=== PATIENT | female | born 1950 | race Caucasian/White ===

== ENCOUNTER → 2016-11-17 | Outpatient (CLI) | payer BC ==
[~2016-11-17] MED LIST: ACCL20; BUPR-79 PO; CLOP1TAB15 PO; GABA-112 PO; GABA-113 PO; OXYC-57 PO; WARF5TAB7 PO
--- NOTE | 2016-11-17 15:15 | DIAGNOSTIC IMAGING REPORT ---
THREE-PHASE NUCLEAR BONE SCAN OF THE LUMBOSACRAL SPINE CLINICAL HISTORY: Right lower extremity radiculopathy. History of remote spinal surgery. COMPARISON STUDY: No priors. TECHNIQUE: Following the IV administration of 27.2 mCi of technetium 99m MDP, three-phase bone scan of the lumbosacral spine was performed. Anterior and posterior flow and blood flow phase images were acquired. Bone phase imaging of the lumbosacral spine was performed at three hours in multiple obliquities. SPECT imaging was performed. Note that interpretation is suboptimal without anatomic imaging correlate. FINDINGS: There is no hyperemia identified within the region of the lumbosacral spine on the flow or blood pool phase images. On the bone phase images there is lumbar levocurvature. There is focal abnormal tracer deposition identified within the right aspect of L3 and L4, as well as in the left aspect of L5. When correlated with the SPECT imaging, activity localized to the vertebral bodies at these levels, possibly related to marginal osteophyte formation. Milder tracer deposition is noted in the region of the facet joints at multiple lumbar levels. No abnormal tracer deposition is identified within the imaged lower thoracic spine or bony pelvis. There is expected excreted activity within the renal collecting system bilaterally. IMPRESSION: 1. Three-phase negative bone scan of lumbosacral spine. 2. There is abnormal tracer deposition identified within the right aspect of the L3 and L4 vertebral bodies and the left aspect of the L5 vertebral body. This is indeterminant and may correspond to lateral/marginal osteophyte formation. Comparison with anatomic imaging (x-ray or CT) is recommended for correlation. 3. Additional low-level degenerative activity and scoliosis as above. Electronically signed by: Patrice Werner M.D. 11/17/2016 3:14 PM Dictated Date/Time: 11/17/2016 3:06 PM
== END | disposition home or self-care (01) ==
LOC: C.NUCL 10:53
PROVIDERS: ATTEND Orthopaedic Surgery
DX: M54.16 Radiculopathy, lumbar region (principal); M54.5 Low back pain

== ENCOUNTER → 2017-01-12 | Outpatient (CLI) | payer BC ==
[~2017-01-12] MED LIST changes: +ATOR-24 PO; +CYM/30 PO; +METO25TA3 PO; +PANT40TA PO; +TRAV0.00 OP; +WARF7.5T PO; +[UNRECOGNIZED DRUG - SUPPLY] PO; +synthroid PO
--- NOTE | 2017-01-12 10:56 | DIAGNOSTIC IMAGING REPORT ---
SI JOINTS 3 OR MORE VIEWS CLINICAL HISTORY: RT HIP PAIN,LUMBAGO COMPARISON STUDY: None. FINDINGS: No fractures identified within the sacrum. Bilateral sacroiliac joints are within normal limits for age. No erosions within the sacroiliac joints. IMPRESSION: No significant abnormality within the bilateral sacroiliac joints. Electronically signed by: Romain Sanders M.D. 01/12/2017 10:55 AM Dictated Date/Time: 01/12/2017 10:54 AM
--- NOTE | 2017-01-12 10:57 | DIAGNOSTIC IMAGING REPORT ---
RIGHT HIP 2 VIEWS CLINICAL HISTORY: Right hip pain. FINDINGS: AP and frog-leg views of the right hip are obtained. No prior studies are available for comparison at the time of dictation. The skeletal structures are osteopenic. No fracture is seen. Only minimal arthritic change is present in the right hip. There is no significant loss of the joint space. Mild spurring is noted along the acetabular roof. Minimal sclerotic change is seen in the right sacroiliac joint. The overlying soft tissues are within normal limits. Phleboliths are noted in the pelvis. IMPRESSION: Osteopenia and minimal degenerative change as above. No acute bony abnormality is identified. Electronically signed by: Patrice Werner M.D. 01/12/2017 10:56 AM Dictated Date/Time: 01/12/2017 10:55 AM
== END | disposition home or self-care (01) ==
LOC: C.RADBC 10:26
PROVIDERS: ATTEND Physician Assistant
DX: M25.551 Pain in right hip (principal); M54.5 Low back pain; M85.88 Other specified disorders of bone density and structure, other site

== ENCOUNTER → 2017-02-23 | Outpatient (CLI) | payer BC ==
[2017-02-23 07:45] LABS: PROTHROMBIN TIME (PATIENT) 10.9 SECONDS (9.0-12.0)
== END | disposition home or self-care (01) ==
LOC: C.LAB 07:18
PROVIDERS: ATTEND Physician Assistant
DX: Z01.812 Encounter for preprocedural laboratory examination (principal); Z79.899 Other long term (current) drug therapy

== ENCOUNTER 2017-07-30 18:54 | Emergency (ER) | payer BC ==
[~2017-07-30] VITALS: Ht 162.6 cm; Wt 76.0 kg
[~2017-07-30 18:54] MED LIST changes: -ACCL20; +ACCL20 PO; -BUPR-79 PO; -GABA-112 PO; -OXYC-57 PO
[2017-07-30 18:57] VITALS: TEMP 36.8; Ht 162.6 cm; Wt 76.0 kg
[2017-07-30] MEDS ORDERED: SODIUM CHLORIDE 0.9% 1000ML 1,000 ML IV STA (19:02)
[2017-07-30] MEDS ORDERED: DILTIAZEM HCL 5 MG/ML 5 ML VIAL IV STA (19:05)
--- NOTE | 2017-07-30 19:15 | EMERGENCY ROOM VISIT NOTE ---
History Report prepared by Inés: Ramya Meléndez Under the Supervision of: Dr. Giancarlo Abraham D.O. First contact with patient: 18:59 Chief Complaint: CARDIAC ASSESSMENT Stated Complaint: IRREGULAR HEARTBEAT History of Present Illness The patient is a 67 year old female who presents to the Emergency Room with complaints of an episode of an irregular heart beat beginning about 45 minutes ago. The patient has a history of irregular heart beats but states she is usually able to "get out of". The patient notes having an episode She notes shortness of breath, high blood pressure and some swelling in her legs. The patient is on Coumadin for fibromuscular dysplasia. She has thyroid problems and notes taking her thyroid medication as prescribed. The patient notes that she stopped working a year ago and states she has gained weight since. She denies any chest pain, nausea or vomiting. The patient recently had a heart catheterization which was unremarkable. She denies any diagnosed history of atrial fibrillation. Source of History: patient Onset: 45 minutes ago Position: other (global) Quality: other (irregular heart beat) Timing: other (episode) Associated Symptoms: + SOB, No nausea, No vomiting Review of Systems See HPI for pertinent positives & negatives. A total of 10 systems reviewed and were otherwise negative. Past Medical & Surgical Medical Problems: (1) Fibromuscular dysplasia Family History Patient reports no known family medical history. Social History Smoking Status: Never Smoker Marital Status: Housing Status: lives with significant other Occupation Status: retired Current/Historical Medications Scheduled Atorvastatin (Lipitor), 1 TAB PO QPM B-Complex Vitamins (Vitamin B Complex), 1 TAB PO DAILY Clopidogrel (Plavix), 75 MG PO DAILY Coenzyme Q10 (Ubidecarenone) (Co Q 10), 100 MG PO DAILY Duloxetine HCl (Cymbalta), 1 CAP PO DAILY Gabapentin (Neurontin), 300 MG PO TID Levothyroxine Sodium (Levothyroxine Sodium), 137 MCG PO DAILY Metoprolol Succ (Toprol Xl) (Toprol-Xl), 12.5 MG PO DAILY Pantoprazole (Protonix), 40 MG PO DAILY Ropinirole Hydrochloride (Requip), 0.25 MG PO BID Travoprost (Travatan Z), 1 DROPS OP HS Warfarin Sod (Jantoven), 5 MG PO 3 x weekly Warfarin Sodium (Coumadin), 1 TAB PO 4 x weekly Zafirlukast (Zafirlukast), 20 MG PO BID Allergies Coded Allergies: No Known Allergies (Unverified , 07/30/17) Physical Exam Vital Signs Date Time Temp Pulse Resp B/P (MAP) Pulse Ox O2 Delivery O2 Flow Rate FiO2 07/30/17 21:05 54 07/30/17 20:30 50 18 154/63 98 Room Air 07/30/17 20:00 53 18 142/56 98 Room Air 07/30/17 19:32 97 Room Air 07/30/17 19:32 59 18 163/64 97 Room Air 07/30/17 19:23 97 Room Air 07/30/17 19:20 97 18 153/99 99 Room Air 07/30/17 19:18 122 07/30/17 19:16 99 Room Air 07/30/17 19:16 99 Room Air 07/30/17 18:57 36.8 148 20 138/73 94 Room Air Physical Exam GENERAL: Patient is awake, alert, and in no acute distress. Patient is resting comfortably and is somewhat anxious. EYES: The conjunctivae are clear. The pupils are round and reactive. EARS, NOSE, MOUTH AND THROAT: The nose is without any evidence of any deformity. Mucous membranes are moist tongue is midline NECK: The neck is nontender and supple. RESPIRATORY: Normal respiratory effort is noted there is no evidence of wheezing rhonchi or rales CARDIOVASCULAR: Tachycardiac and irregular. No definite murmur to auscultation. GASTROINTESTINAL: The abdomen is soft. Bowel sounds are present in all quadrants. Abdomen is nontender MUSCULOSKELETAL/EXTREMITIES: There is no evidence of gross deformity full range of motion is noted in the hips and shoulders SKIN: There is no obvious evidence of any rash. There are no petechiae, pallor or cyanosis noted. NEUROLOGIC: Patient is awake alert and oriented x3 Medical Decision & Procedures ER Provider Diagnostic Interpretation: Radiology results as stated below per my review and radiologist interpretation: CHEST ONE VIEW PORTABLE FINDINGS: Lung volumes are normal. There is no pneumothorax or pleural effusion. There is no evidence of pulmonary edema. Mild cardiomegaly is noted. A metallic density projects over the lower chest/upper abdomen. IMPRESSION: 1. No acute cardiopulmonary findings. 2. Mild cardiomegaly. 3. Indeterminate radiodensity which projects over the lower chest/upper abdomen. Electronically signed by: Costa Minaya M.D. Laboratory Results 07/30/17 19:10 Red Blood Count 4.39, Mean Corpuscular Volume 92.7, Mean Corpuscular Hemoglobin 30.5, Mean Corpuscular Hemoglobin Concent 32.9, Mean Platelet Volume 9.3 07/30/17 19:10 Test 07/30/17 19:10 07/30/17 19:33 White Blood Count 9.30 K/uL (4.8-10.8) Red Blood Count 4.39 M/uL (4.2-5.4) Hemoglobin 13.4 g/dL (12.0-16.0) Hematocrit 40.7 % (37-47) Mean Corpuscular Volume 92.7 fL (80-100) Mean Corpuscular Hemoglobin 30.5 pg (25-34) Mean Corpuscular Hemoglobin Concent 32.9 g/dl (32-36) Platelet Count 311 K/uL (130-400) Mean Platelet Volume 9.3 fL (7.4-10.4) RDW Standard Deviation 42.4 fL (36.4-46.3) RDW Coefficient of Variation 12.5 % (11.5-14.5) Neutrophils % (Manual) 27.9 % Lymphocytes % (Manual) 29.8 % Variant Lymphocytes % (manual) 29.7 % Monocytes % (Manual) 8.1 % Eosinophils % (Manual) 0.9 % Basophils % (Manual) 3.6 % Neutrophils # (Manual) 2.59 K/uL (1.4-6.5) Total Absolute Neutrophils 2.59 K/uL (1.4-6.5) Lymphocytes # (Manual) 2.77 K/uL (1.2-3.4) Absolute Variant Lymphocytes 2.76 K/uL Total Absolute Lymphocytes 5.53 K/uL (1.2-3.4) Monocytes # (Manual) 0.75 K/uL (0.11-0.59) Eosinophils # (Manual) 0.08 K/uL (0-0.5) Basophils # (Manual) 0.33 K/uL (0-0.2) Prothrombin Time 25.1 SECONDS (9.0-12.0) Prothromb Time International Ratio 2.4 (0.9-1.1) Activated Partial Thromboplast Time 34.9 SECONDS (21.0-31.0) Partial Thromboplastin Ratio 1.3 Anion Gap 4.0 mmol/L (3-11) Est Creatinine Clear Calc Drug Dose 70.0 ml/min Estimated GFR () 89.7 Estimated GFR (Non- 77.4 BUN/Creatinine Ratio 16.4 (10-20) Calcium Level 9.1 mg/dl (8.5-10.1) Magnesium Level 1.9 mg/dl (1.8-2.4) Total Bilirubin 0.2 mg/dl (0.2-1) Aspartate Amino Transf (AST/SGOT) 39 U/L (15-37) Alanine Aminotransferase (ALT/SGPT) 51 U/L (12-78) Alkaline Phosphatase 103 U/L (45-117) Total Creatine Kinase 164 U/L (26-192) Creatine Kinase MB 1.3 ng/ml (0.5-3.6) Creatine Kinase MB Ratio 0.8 (0-3.0) Troponin I < 0.015 ng/ml (0-0.045) Pro-B-Type Natriuretic Peptide 211 pg/ml (0-900) Total Protein 8.2 gm/dl (6.4-8.2) Albumin 4.1 gm/dl (3.4-5.0) Globulin 4.1 gm/dl (2.5-4.0) Albumin/Globulin Ratio 1.0 (0.9-2) Thyroid Stimulating Hormone (TSH) 13.100 uIu/ml (0.300-4.500) Free Thyroxine 1.00 ng/dl (0.80-1.60) Urine Color YELLOW Urine Appearance CLEAR (CLEAR) Urine pH 8.5 (4.5-7.5) Urine Specific [place] 1.009 (1.000-1.030) Urine Protein NEG (NEG) Urine Glucose (UA) NEG (NEG) Urine Ketones NEG (NEG) Urine Occult Blood NEG (NEG) Urine Nitrite NEG (NEG) Urine Bilirubin NEG (NEG) Urine Urobilinogen NEG (NEG) Urine Leukocyte Esterase NEG (NEG) Laboratory results per my review. Medications Administered Medications (Trade) Dose Ordered Sig/Isaías Route Start Time Stop Time Status Last Admin Dose Admin Sodium Chloride 1,000 ml @ 999 mls/hr Q1H1M STAT IV 07/30/17 19:02 07/30/17 20:02 DC 07/30/17 19:16 999 MLS/HR Diltiazem HCl (Cardizem Inj) 20 mg NOW STAT IV 07/30/17 19:05 07/30/17 19:06 DC 07/30/17 19:17 20 MG ECG Indication: other (irregular heart beat) Rate (beats per minute): 139 Rhythm: atrial fibrillation (with RVR) Findings: ST depression (Lateral and inferior), other (No PVC) Comparison ECG Date: no prior available Change: REPEAT EKG: Sinus bradycardia, 57 bpm, no ectopy, no acute ST segment, resolution of previous atrial fibrillation. ED Course 1899: The patient was evaluated in room C4. A complete history and physical examination were performed. 1901: Ordered NSS 1,000 ml @ 999 mls/hr IV. 1904: Ordered Cardizem Inj 20 mg IV. 2099: I discussed the patient's case with Dr. Peck-Cardiology. He recommended increasing the patient's beta rohith and having the patient follow up as an outpatient for an echocardiogram. 2104: I updated the patient on the treatment plan and she is agreeable. 2112: Upon reevaluation, the patient is resting comfortably. I discussed the results and treatment plan with her. She verbalized agreement of the treatment plan. The patient was discharged home. Medical Decision Differential diagnosis: Etiologies such as premature contractions, electrolyte abnormality, cardiac dysrhythmia, thyroid dysfunction, pulmonary embolism, infection, gastrointestinal, as well as others were entertained. Nursing notes reviewed. Additional history is obtained from the patient's significant other. The patient is a 67-year-old female who presented to the emergency department for palpitations. The patient is had problems with intermittent palpitations for almost a year. There has never been and documentation of the exact dysrhythmia but the patient started having palpitations this evening and presented to the emergency department with an irregular narrow complex tachycardia which appeared to be consistent with atrial fibrillation. Currently the patient takes blood thinners as well as beta blockers for previous medical history. The patient was treated with IV fluids and IV Cardizem in the emergency department. On subsequent reevaluation she was in sinus rhythm. I discussed patient's laboratory and radiographic studies with her. I discussed his case with the on-call [facility] educational administrator. The patient was encouraged to rest and avoid any strenuous activity. She was also encouraged to drink plenty clear liquids. She was also encouraged to call the educational administrator on Tuesday morning to schedule a follow-up appointment but return to the emergency department immediately if symptoms change worsen or the need arises. Medication Reconcilliation Current Medication List: was personally reviewed by me Blood Pressure Screening Patient's blood pressure: Elevated blood pressure Blood pressure disposition: Referred to PCP Consults Time Called: 2032 Consulting Physician: Dr. Banegas Returned Call: 2099 I discussed the patient's case with Dr. Banegas. He recommended increasing the patient's beta rohith and having the patient follow up as an outpatient for an echocardiogram. Impression Primary Impression: Atrial fibrillation Additional Impression: Palpitations Scribe Attestation The scribe's documentation has been prepared under my direction and personally reviewed by me in its entirety. I confirm that the note above accurately reflects all work, treatment, procedures, and medical decision making performed by me. Departure Information Dispostion Home / Self-Care Referrals Giancarlo Buck MD (PCP) Forms IMPORTANT VISIT INFORMATION Patient Instructions Atrial Fibrillation, My [facility] Additional Instructions Drink plenty clear liquids. Rest and avoid any strenuous activity. Increase your metoprolol XL to 25 milligrams daily. Return to the emergency department immediately if symptoms change worsen or the need arises. Call the educational administrator to schedule a follow-up appointment and further testing such as an echocardiogram to further evaluate the cause of your atrial fibrillation. Problem Qualifiers
[2017-07-30 19:16] VITALS: O2SAT 99
[2017-07-30 19:24] LABS: HEMATOCRIT 40.7 % (37-47); MEAN CELL VOLUME 92.7 fL (80-100); MEAN CORPUSCULAR HEMOGLOBIN 30.5 pg (25-34); MEAN CORPUSCULAR HGB CONC 32.9 g/dl (32-36); MEAN PLATELET VOLUME 9.3 fL (7.4-10.4); PLATELET COUNT 311 K/uL (130-400); RED BLOOD COUNT 4.39 M/uL (4.2-5.4)
[2017-07-30 19:34] LABS: INR 2.4 (0.9-1.1); PARTIAL THROMBOPLASTIN RATIO 1.3; PROTHROMBIN TIME (PATIENT) 25.1 SECONDS (9.0-12.0)
--- NOTE | 2017-07-30 19:42 | DIAGNOSTIC IMAGING REPORT ---
CHEST ONE VIEW PORTABLE CLINICAL HISTORY: Respiratory distress. Dyspnea. COMPARISON STUDY: No previous studies for comparison. FINDINGS: Lung volumes are normal. There is no pneumothorax or pleural effusion. There is no evidence of pulmonary edema. Mild cardiomegaly is noted. A metallic density projects over the lower chest/upper abdomen. IMPRESSION: 1. No acute cardiopulmonary findings. 2. Mild cardiomegaly. 3. Indeterminate radiodensity which projects over the lower chest/upper abdomen. Electronically signed by: Costa Minaya M.D. 07/30/2017 7:40 PM Dictated Date/Time: 07/30/2017 7:39 PM
[2017-07-30 19:47] LABS: BASO ABS # 0.33 K/uL (0-0.2); BASOPHIL % 3.6 %; EOSINOPHIL % 0.9 %; LYMPH ABS # 2.77 K/uL (1.2-3.4); LYMPHOCYTE % 29.8 %; NEUTROPHILS % 27.9 %; VARIANT LYM ABS # 2.76 K/uL; VARIANT LYMPHOCYTE % 29.7 %
[2017-07-30 19:50] LABS: ALT/SGPT 51 U/L (12-78); AST/SGOT 39 U/L (15-37); BLOOD UREA NITROGEN 13 mg/dl (7-18); BUN/CREATININE RATIO 16.4 (10-20); CALCIUM 9.1 mg/dl (8.5-10.1); CARBON DIOXIDE 29 mmol/L (21-32); CHLORIDE 104 mmol/L (98-107); GLUCOSE 85 mg/dl (70-99); MAGNESIUM 1.9 mg/dl (1.8-2.4); POTASSIUM 3.5 mmol/L (3.5-5.1); SODIUM 137 mmol/L (136-145)
[2017-07-30] MEDS ORDERED: LEVO137T3 PO (19:50)
[2017-07-30] MEDS ORDERED: ROPI0.25 PO (19:50)
[2017-07-30] MEDS ORDERED: B-COTAB18 PO (19:50)
[2017-07-30] MEDS ORDERED: COEN1CAP17 PO (19:50)
[2017-07-30 19:52] LABS: URINE APPEARANCE CLEAR (CLEAR); URINE BILIRUBIN NEG (NEG); URINE COLOR YELLOW; URINE NITRITE NEG (NEG); URINE PH 8.5 (4.5-7.5); URINE SPECIFIC GRAVITY 1.009 (1.000-1.030); UROBILINOGEN NEG (NEG)
[2017-07-30 19:57] LABS: ALKALINE PHOSPHATASE 103 U/L (45-117); CKMB/CK RATIO 0.8 (0-3.0)
[2017-07-30 20:07] LABS: MANUAL MICROSCOPIC REQUIRED? NO; REVIEW REQ? NO
[2017-07-30 21:19] VITALS: BP 151/59; PULSE 53; O2SAT 97
[2017-08-01 11:21] LABS: COMPLETE YES
== END 2017-07-30 21:19 | disposition home or self-care (01) ==
LOC: C.EDB 18:55 → C.EDC 21:19
DX: I48.91 Unspecified atrial fibrillation (principal); E07.9 Disorder of thyroid, unspecified; Z79.01 Long term (current) use of anticoagulants; Z79.899 Other long term (current) drug therapy

== ENCOUNTER 2017-08-21 14:59 | Emergency (ER) | payer BC ==
[~2017-08-21] VITALS: Ht 162.6 cm; Wt 76.9 kg
[~2017-08-21 14:59] MED LIST changes: -ACCL20 PO; +B-COTAB18 PO; +COEN1CAP17 PO; +LEVO137T3 PO; +ROPI0.25 PO; +ZAFI1TAB11 PO; -[UNRECOGNIZED DRUG - SUPPLY] PO; -synthroid PO
[2017-08-21 15:02] VITALS: TEMP 36.3; Ht 162.6 cm; Wt 76.9 kg
--- NOTE | 2017-08-21 15:24 | EMERGENCY ROOM VISIT NOTE ---
History First contact with patient: 15:07 Chief Complaint: ARM PAIN Stated Complaint: PAIN AND BURNING IN RIGHT ARM History of Present Illness The patient is a 67 year old female who presents to the Emergency Room with complaints of right elbow bruising that she noticed when she woke up yesterday morning. She denies any known injury. The patient is on Coumadin for a history of A. fib. She also notes some redness to the area. She denies any fever or chills. She has full range of motion. It is tender to touch. She denies any known insect bites. She denies any numbness or tingling into the hand. Review of Systems 6 system review negative. Please see pertinent positives in the history of present illness section. Past Medical/Surgical History Medical Problems: (1) Fibromuscular dysplasia A. fib Family History Patient reports no known family medical history. Social History Smoking Status: Never Smoker Marital Status: Housing Status: lives with significant other Occupation Status: retired Current/Historical Medications Scheduled Atorvastatin (Lipitor), 40 MG PO QPM B-Complex Vitamins (Vitamin B Complex), 1 TAB PO DAILY Clopidogrel (Plavix), 75 MG PO DAILY Coenzyme Q10 (Ubidecarenone) (Co Q 10), 100 MG PO DAILY Duloxetine HCl (Cymbalta), 30 MG PO DAILY Gabapentin (Neurontin), 300 MG PO TID Levothyroxine Sodium (Levothyroxine Sodium), 137 MCG PO DAILY Metoprolol Succ (Toprol Xl) (Toprol-Xl), 25 MG PO QPM Pantoprazole (Protonix), 40 MG PO DAILY Ropinirole Hydrochloride (Requip), 0.25 MG PO BID Travoprost (Travatan Z), 1 DROPS OP HS Warfarin Sod (Jantoven), 5 MG PO 3 x weekly Warfarin Sodium (Coumadin), 1 TAB PO 4 x weekly Zafirlukast (Zafirlukast), 20 MG PO BID Physical Exam Vital Signs Date Time Temp Pulse Resp B/P (MAP) Pulse Ox O2 Delivery O2 Flow Rate FiO2 08/21/17 15:02 36.3 59 16 156/66 100 Room Air Physical Exam VITALS: Vitals are noted on the nurse's note and reviewed by myself. Vital signs stable. GENERAL: 67-year-old female, in no acute distress, nondiaphoretic, well- developed well-nourished. HEAD: Normocephalic atraumatic. MUSCULOSKELETAL: Ecchymosis noted to the right elbow, particularly over the proximal ulna. Tenderness to palpation noted. Mild erythema also noted. No area of induration. Full range of motion with flexion and extension. Pronation and supination of the wrist is intact. Radial pulse +2. She is able to make an okay sign. Capillary refill in the fingers is less than 2 seconds. NEURO: Patient was alert and oriented to person place and time. Normal sensation to touch. No focal neurological deficits. Medical Decision & Procedures ER Provider Diagnostic Interpretation: Right elbow x-ray IMPRESSION: Negative study. The above report was generated using voice recognition software. It may contain grammatical, syntax or spelling errors. Electronically signed by: Solomon Harry M.D. 08/21/2017 3:58 PM Dictated Date/Time: 08/21/2017 3:57 PM The status of this report is Signed. Draft = Not yet reviewed or approved by Radiologist. Signed = Reviewed and approved by Radiologist. <AttendingPhy></AttendingPhy> <FamilyPhy>Giancarlo Buck MD</FamilyPhy> < PrimaryPhy>Giancarlo Buck MD</PrimaryPhy> <UnitNumber>[id number]</UnitNumber > <VisitNumber>[id number]</VisitNumber> <PatientName>HUMPHREY SALINAS</ PatientName> <DateOfBirth>1950</DateOfBirth> <Location>[facility]</Location> < ServiceDate>08/21/17</ServiceDate> <MNE>ESINDI</MNE> <OrderingPhy>Mayra Cleveland PA-C</OrderingPhy> <OrderingPhyMNE>f rep ord dr hanna</OrderingPhyMNE> < DictatingPhyMNE>f rep dict dr hanna</DictatingPhyMNE> <CCListMNE>f rep ct claye</ CCListMNE> <AdmittingPhyMNE>f pt admit dr hanna</AdmittingPhyMNE> <AttendingPhyMNE >f pt attend dr hanna</AttendingPhyMNE> <ConsultingPhyMNE>f pt consult dr hanna</ConsultingPhyMNE> <FamilyPhyMNE>f pt fam dr hanna</FamilyPhyMNE> <OtherPhyMNE>f pt other dr hanna</OtherPhyMNE> < PrimaryPhyMNE>f pt prim care dr hanna</PrimaryPhyMNE> <ReferringPhyMNE>f pt referring Laboratory Results 08/21/17 15:28 Red Blood Count 4.28, Mean Corpuscular Volume 93.9, Mean Corpuscular Hemoglobin 30.8, Mean Corpuscular Hemoglobin Concent 32.8, Mean Platelet Volume 9.6, Neutrophils (%) (Auto) 43.4, Lymphocytes (%) (Auto) 46.3, Monocytes (%) (Auto) 7.3, Eosinophils (%) (Auto) 2.1, Basophils (%) (Auto) 0.6, Neutrophils # (Auto) 2.83, Lymphocytes # (Auto) 3.03, Monocytes # (Auto) 0.48, Eosinophils # (Auto) 0.14, Basophils # (Auto) 0.04 08/21/17 15:28 Test 08/21/17 15:28 White Blood Count 6.54 K/uL (4.8-10.8) Red Blood Count 4.28 M/uL (4.2-5.4) Hemoglobin 13.2 g/dL (12.0-16.0) Hematocrit 40.2 % (37-47) Mean Corpuscular Volume 93.9 fL (80-100) Mean Corpuscular Hemoglobin 30.8 pg (25-34) Mean Corpuscular Hemoglobin Concent 32.8 g/dl (32-36) Platelet Count 306 K/uL (130-400) Mean Platelet Volume 9.6 fL (7.4-10.4) Neutrophils (%) (Auto) 43.4 % Lymphocytes (%) (Auto) 46.3 % Monocytes (%) (Auto) 7.3 % Eosinophils (%) (Auto) 2.1 % Basophils (%) (Auto) 0.6 % Neutrophils # (Auto) 2.83 K/uL (1.4-6.5) Lymphocytes # (Auto) 3.03 K/uL (1.2-3.4) Monocytes # (Auto) 0.48 K/uL (0.11-0.59) Eosinophils # (Auto) 0.14 K/uL (0-0.5) Basophils # (Auto) 0.04 K/uL (0-0.2) RDW Standard Deviation 42.0 fL (36.4-46.3) RDW Coefficient of Variation 12.4 % (11.5-14.5) Immature Granulocyte % (Auto) 0.3 % Immature Granulocyte # (Auto) 0.02 K/uL (0.00-0.02) Erythrocyte Sedimentation Rate 22 mm/hr (0-21) Prothrombin Time 28.8 SECONDS (9.0-12.0) Prothromb Time International Ratio 2.8 (0.9-1.1) Anion Gap 3.0 mmol/L (3-11) Est Creatinine Clear Calc Drug Dose 59.3 ml/min Estimated GFR () 72.8 Estimated GFR (Non- 62.9 BUN/Creatinine Ratio 9.6 (10-20) Calcium Level 9.1 mg/dl (8.5-10.1) C-Reactive Protein < 0.29 mg/dl (0-0.29) ED Course Patient was seen and examined Vital signs including blood pressure were reviewed medications list was verified with patient Labs were obtained, and a saline lock was established Imaging was performed and reviewed The findings were discussed with the patient. She voiced understanding. A compression Jesús wrap was applied. I reviewed discharge instructions the patient. They voiced understanding and had no further questions. Medical Decision Differential diagnosis: Elbow contusion, fracture, bursitis, insect bite, supratherapeutic INR, infectious etiology This patient is a 67-year-old female that presents to the emergency department with complaints of ecchymosis and redness to the right elbow with no known injury. On exam, she did have ecchymosis over the proximal forearm and elbow. There is no tenderness over the bursa. There was a small area of erythema. Lab work was performed. There is no leukocytosis. CRP is not elevated. The patient is not febrile. I do not suspect an infectious etiology. She likely had a minor injury, and due to the fact that she is on Coumadin, resulted in bruising. Her INR is 2.8, which is appropriate. The patient was put in a compression Jesús bandage. She will apply ice intermittently. I advised her to follow-up with her primary care physician to have this rechecked in the next few days. She was comfortable with this plan. I advised her to return to the emergency department immediately with any new or worsening symptoms; especially , increased redness, swelling or fever. This chart was completed in part utilizing [employer] Speech Voice Recognition software. Attempts were made to minimize the grammatical errors, random word insertions, pronoun errors and incomplete sentences. Any formal questions or concerns about the content, text or information contained within the body of this dictation should be directly addressed to the provider for clarification. Medication Reconcilliation Current Medication List: was personally reviewed by me Blood Pressure Screening Patient's blood pressure: Elevated blood pressure Blood pressure disposition: Did not require urgent referral Impression Primary Impression: Elbow contusion Departure Information Dispostion Home / Self-Care Condition GOOD Referrals Giancarlo Buck MD (PCP) Patient Instructions My [facility] Additional Instructions You were evaluated in the emergency department for bruising to the right elbow. This is likely due to being on Coumadin. Please keep the Jesús wrap in place for 2 days. Apply ice for 20 minute intervals over the next 2 days. Please follow-up with your primary care physician in 3-5 days for recheck. Do not hesitate to return to the emergency department with any new, worsening or concerning symptoms; especially, increased redness, swelling, pain or fever
[2017-08-21 15:37] LABS: BASO % 0.6 %; BASO ABS # 0.04 K/uL (0-0.2); EOS % 2.1 %; EOS ABS # 0.14 K/uL (0-0.5); HEMATOCRIT 40.2 % (37-47); HEMOGLOBIN 13.2 g/dL (12.0-16.0); IG# 0.02 K/uL (0.00-0.02); LYMPH % 46.3 %; LYMPH ABS # 3.03 K/uL (1.2-3.4); MEAN CELL VOLUME 93.9 fL (80-100); MEAN CORPUSCULAR HEMOGLOBIN 30.8 pg (25-34); MEAN CORPUSCULAR HGB CONC 32.8 g/dl (32-36); MEAN PLATELET VOLUME 9.6 fL (7.4-10.4); MONO % 7.3 %; MONO ABS # 0.48 K/uL (0.11-0.59); NEUT % 43.4 %; NEUT ABS # 2.83 K/uL (1.4-6.5); PLATELET COUNT 306 K/uL (130-400); RED CELL DISTRIBUTION WIDTH CV 12.4 % (11.5-14.5); WHITE BLOOD COUNT 6.54 K/uL (4.8-10.8)
[2017-08-21 15:44] LABS: INR 2.8 (0.9-1.1)
--- NOTE | 2017-08-21 15:59 | DIAGNOSTIC IMAGING REPORT ---
R ELBOW MIN 3 VIEWS ROUTINE CLINICAL HISTORY: R elbow/forearm bruising and redness pain. Edema. COMPARISON: None. DISCUSSION: The bones and joint spaces appear intact. There is no evidence of fracture, dislocation or bony disease. There is no evidence for soft tissue swelling. IMPRESSION: Negative study. The above report was generated using voice recognition software. It may contain grammatical, syntax or spelling errors. Electronically signed by: Solomon Harry M.D. 08/21/2017 3:58 PM Dictated Date/Time: 08/21/2017 3:57 PM
[2017-08-21 16:07] LABS: BLOOD UREA NITROGEN 9 mg/dl (7-18); CALCIUM 9.1 mg/dl (8.5-10.1); CARBON DIOXIDE 32 mmol/L (21-32); CREATININE 0.95 mg/dl (0.60-1.20); GLUCOSE 145 mg/dl (70-99); POTASSIUM 3.5 mmol/L (3.5-5.1); SODIUM 138 mmol/L (136-145)
[2017-08-21 17:24] VITALS: BP 144/57; PULSE 52; O2SAT 99
== END 2017-08-21 17:25 | disposition home or self-care (01) ==
LOC: C.EDB 14:59 → C.EDC 17:25
DX: M79.81 Nontraumatic hematoma of soft tissue (principal); I48.91 Unspecified atrial fibrillation; I77.3 Arterial fibromuscular dysplasia; R03.0 Elevated blood-pressure reading, without diagnosis of hypertension; Z79.01 Long term (current) use of anticoagulants